=== PATIENT | female | born 1955 | race Caucasian/White ===

== ENCOUNTER 2016-08-24 06:14 | Emergency (ER) | payer MEDICARE, MEDICAID ==
[2016-08-24 06:21] VITALS: BP 120/63
--- NOTE | 2016-08-24 06:33 | ER Document Report ---
ED Medical Screen (RME) - General Information source: Patient TRAVEL OUTSIDE OF THE [place] IN LAST 30 DAYS: No - HPI Patient complains to provider of: Cellulitic Left Foot Onset/Duration: Gradual, Persistent - General Chief Complaint: Wound Recheck Stated Complaint: WOUND RECHECK Notes: Patient is a 61-year-old female presenting to the emergency department for recheck of her cellulitic left foot. Patient was seen here yesterday and given Clindamycin. Patient reports that despite elevating her foot and taking the medication, her foot is still very tender, red, and swollen. Patient states that the infection around her clavicle has improved with the cream she was given. 08/14/2016 patient had bone marrow from her left knee transferred into her clavicle for a fracture injury that was previously attempted to fix with a bone graft. Patient rejected the cadaver bone, so this procedure was performed. (AIDA WOOD) - Related Data Allergies/Adverse Reactions: codeine Allergy (Severe, Verified 08/23/16 13:25) Anaphylaxis Penicillins Allergy (Severe, Verified 08/23/16 13:25) Anaphylaxis NSAIDS (Non-Steroidal Anti-Inflamma Adverse Reaction (Severe, Verified 08/23/16 13:25) GI upset BEE STINGS Allergy (Severe, Uncoded 08/23/16 13:25) Anaphylaxis LIDOCAINE PATCH Allergy (Severe, Uncoded 08/23/16 13:25) Blisters Past Medical History - General Information source: Patient - Social History Lives with: Spouse/Significant other Family history: Reviewed & Not Pertinent Pulmonary Medical History: Reports: Hx Asthma - albuterol 03/08 Renal/ Medical History: Reports: Hx Kidney Stones - R GI Medical History: Reports: Hx Gastroesophageal Reflux Disease Musculoskeltal Medical History: Reports Hx Arthritis - DDD, lumbar fusion screws & pins (2008 & 2012) Past Surgical History: Reports: Hx Orthopedic Surgery - R ROTATOR CUFF, NECK WITH HARDWARE, BONE GRAFT - Immunizations Hx Diphtheria, Pertussis, Tetanus Vaccination: Yes Review of Systems - Review of Systems Constitutional: No symptoms reported EENT: No symptoms reported Cardiovascular: No symptoms reported Respiratory: No symptoms reported Gastrointestinal: No symptoms reported Genitourinary: No symptoms reported Female Genitourinary: No symptoms reported Musculoskeletal: See HPI, Leg swelling Skin: See HPI, Change in color Hematologic/Lymphatic: No symptoms reported Neurological/Psychological: No symptoms reported Physical Exam - Vital signs Interpretation: Normal - General General appearance: Alert - HEENT Head: Normocephalic, Atraumatic Eyes: Normal Pupils: PERRL - Respiratory Respiratory status: No respiratory distress Chest status: Nontender Breath sounds: Normal Chest palpation: Normal - Cardiovascular Rhythm: Regular Heart sounds: Normal auscultation Murmur: No - Abdominal Inspection: Normal Distension: No distension Bowel sounds: Normal Tenderness: Nontender Organomegaly: No organomegaly - Back Back: Normal, Nontender - Extremities General upper extremity: Normal inspection, Nontender, Normal color, Normal ROM , Normal temperature General lower extremity: Tender, Edema, Other - Left lower extremity- non- pitting edema and anterior erythema up to mid calf. Warm to touch.. No: Normal temperature - Neurological Neuro grossly intact: Yes Cognition: Normal [place] Coma Scale Eye Opening: Spontaneous [place] Coma Scale Verbal: Oriented [place]a Coma Scale Motor: Obeys Commands [place] Coma Scale Total: 15 Speech: Normal - Psychological Associated symptoms: Normal affect, Normal mood - Skin Skin Temperature: Warm Skin Moisture: Dry Skin Color: Other - See lower extremity exam. - Vital signs Vitals: Temp Pulse Resp BP Pulse Ox 98.0 F 90 18 120/63 94 08/24/16 06:20 08/24/16 06:20 08/24/16 06:20 08/24/16 06:20 08/24/16 06:20 (JALEN EDWARD) (AIDA WOOD) Course - Re-evaluation Re-evalutation: 08/24/16 06:34 I personally performed the services described in the documentation, reviewed and edited the documentation which was dictated to my scribe in my presence, and it accurately records my words and actions. Patient present presented to the emergency Department for mandatory recheck that I requested I saw her yesterday and evaluation postop wound infection to the left anterior clavicle spoke with Dr. Roach that area is doing well she's received clindamycin for that left lower extremity was negative for DVT but does have a early cellulitis. Give her a shot of Rocephin that she couldn't do clindamycin and recheck her in 1224 hrs. in the emergency department and discussed reasons for ED return sooner (JALEN EDWARD) - Vital Signs Vital signs: Temp Pulse Resp BP Pulse Ox 98.0 F 90 18 120/63 94 08/24/16 06:20 08/24/16 06:20 08/24/16 06:20 08/24/16 06:20 08/24/16 06:20 (JALEN EDWARD) (AIDA WOOD) Doctor's Discharge - Discharge Clinical Impression: Encounter for wound re-check Cellulitis Qualifiers: Site of cellulitis: extremity Site of cellulitis of extremity: lower extremity Laterality: left Qualified Code(s): L03.116 - Cellulitis of left lower limb Additional Instructions: Cellulitis You have an infection of your skin and underlying soft tissues called cellulitis. This is due to bacteria, which can enter through any break in the skin, or even through an irritated hair follicle. Untreated, cellulitis will usually worsen. Antibiotics are required. Usually, warm packs or warm soaks, and elevation of the infected area are recommended. You should start getting better within 24 to 36 hours. Most infections respond quickly to the right medication. Follow-up care is important, however, to check for abscess (boil) formation, unsuspected foreign body, or resistant infection. If you develop fever, chills, or if the area of infection is becoming rapidly more swollen or painful, call the doctor at once. Recheck and reevaluation in the emergency department in 12-25 hours return for increasing worsening or new symptoms Scribe Documentation - Scribe Written by Obey:: Aida Wood 08/24/2016 07:57 acting as scribe for :: Denilson
[2016-08-24] MEDS ORDERED: CEFTRIAXONE INJ 1000 MG VIAL IM ONE (06:41)
[2016-08-24] MEDS ORDERED: CLINDAMYCIN PHOSPHATE INJ 300 MG/2 ML SDV IM ONE (06:42)
== END 2016-08-24 07:01 | disposition home or self-care (01) ==
LOC: ER 06:14
DX: L03.116 Cellulitis of left lower limb (principal); Z98.890 Other specified postprocedural states; Z88.6 Allergy status to analgesic agent; Z88.0 Allergy status to penicillin; Z91.030 Bee allergy status; Z87.442 Personal history of urinary calculi; Z98.1 Arthrodesis status
CPT/HCPCS: 96372; 99282

== ENCOUNTER 2016-08-25 06:00 | Emergency (ER) | payer MEDICARE, MEDICAID ==
[2016-08-25] MEDS ORDERED: CLINDAMYCIN 900 MG/D5W RTU 50 ML IV ONE (07:45)
--- NOTE | 2016-08-25 07:45 | ER Document Report ---
ED Wound - General Mode of Arrival: Ambulatory Information source: Patient TRAVEL OUTSIDE OF THE [place] IN LAST 30 DAYS: No - HPI Patient complains to provider of: Post surgical problem Onset/Duration: Persistent Severity: None Associated Symptoms: None - General Chief Complaint: Wound Recheck Stated Complaint: RECHECK Notes: Patient is a 61 year old female that presents to the emergency department today for a mandatory wound recheck. Patient initially had surgery on August 13, 2016 for a left clavicle fracture. Patient fractured her left clavicle around one year ago and it did not heal properly. Patient had a cadaver bone placed which was rejected so Dr. Roach took bone marrow from her left knee on to attempt to fix the clavicle. Patient's left clavicle wound grew out gram positive cocci. Patient reports no new symptoms. (STUART SHEEHAN) - Related Data Allergies/Adverse Reactions: codeine Allergy (Severe, Verified 08/23/16 13:25) Anaphylaxis Penicillins Allergy (Severe, Verified 08/23/16 13:25) Anaphylaxis NSAIDS (Non-Steroidal Anti-Inflamma Adverse Reaction (Severe, Verified 08/23/16 13:25) GI upset BEE STINGS Allergy (Severe, Uncoded 08/23/16 13:25) Anaphylaxis LIDOCAINE PATCH Allergy (Severe, Uncoded 08/23/16 13:25) Blisters Past Medical History - General Information source: Patient, [facility] Records - Social History Smoking Status: Current Every Day Smoker Cigarette use (# per day): Yes Chew tobacco use (# tins/day): No Frequency of alcohol use: None Drug Abuse: None Lives with: Family Family History: Reviewed & Not Pertinent Patient has suicidal ideation: No Patient has homicidal ideation: No Pulmonary Medical History: Reports: Hx Asthma - albuterol 03/08 Renal/ Medical History: Reports: Hx Kidney Stones - R GI Medical History: Reports: Hx Gastroesophageal Reflux Disease Musculoskeltal Medical History: Reports Hx Arthritis - DDD, lumbar fusion screws & pins (2008 & 2012) Past Surgical History: Reports: Hx Orthopedic Surgery - R ROTATOR CUFF, NECK WITH HARDWARE, BONE GRAFT - Immunizations Hx Diphtheria, Pertussis, Tetanus Vaccination: Yes Hx Pneumococcal Vaccination: 08/24/10 Review of Systems - Review of Systems Constitutional: denies: Fever EENT: No symptoms reported Cardiovascular: No symptoms reported Respiratory: No symptoms reported Gastrointestinal: No symptoms reported Genitourinary: No symptoms reported Female Genitourinary: No symptoms reported Musculoskeletal: No symptoms reported Skin: See HPI, Other - here for wound recheck Hematologic/Lymphatic: No symptoms reported Neurological/Psychological: No symptoms reported -: Yes All other systems reviewed and negative Physical Exam - General General appearance: Appears well In distress: None - HEENT Head: Normocephalic, Atraumatic Eyes: Normal Conjunctiva: Normal - Respiratory Respiratory status: No respiratory distress - Cardiovascular Rhythm: Regular - Abdominal Inspection: Normal Distension: No distension - Extremities General lower extremity: Edema - LLE with compression stocking in place, minimal erythema to anterior cruz, cellulitis has improved - Neurological Neuro grossly intact: Yes Cognition: Normal Orientation: AAOx4 - Psychological Associated symptoms: Normal affect, Normal mood - Vital signs Vitals: Temp Pulse Resp BP Pulse Ox 97.8 F 92 18 120/55 L 95 08/25/16 06:04 08/25/16 06:04 08/25/16 06:04 08/25/16 06:04 08/25/16 06:04 (STUART SHEEHAN) (JALEN EDWARD) - Skin Notes: Stapled incision over left clavicle with minimal surrounding erythema. (STUART SHEEHAN) Discharge - Discharge Clinical Impression: Local infection of wound, Postoperative wound infection Condition: Stable Disposition: HOME, SELF-CARE Additional Instructions: Cellulitis You have an infection of your skin and underlying soft tissues called cellulitis. This is due to bacteria, which can enter through any break in the skin, or even through an irritated hair follicle. Untreated, cellulitis will usually worsen. Antibiotics are required. Usually, warm packs or warm soaks, and elevation of the infected area are recommended. You should start getting better within 24 to 36 hours. Most infections respond quickly to the right medication. Follow-up care is important, however, to check for abscess (boil) formation, unsuspected foreign body, or resistant infection. If you develop fever, chills, or if the area of infection is becoming rapidly more swollen or painful, call the doctor at once. At Dr. Roach as scheduled on Thursday return for increasing worsening new symptoms make sure he refill your prescription medication Scribe Documentation - Scribe acting as scribe for :: Denilson Written by Scribe:: Obey Carter, 0523 08/25/2016
[2016-08-25] MEDS ORDERED: CLINDAMYCIN PHOSPHATE INJ 300 MG/2 ML SDV IM ONE (08:20)
[2016-08-25 08:39] VITALS: BP 115/50
== END 2016-08-25 08:40 | disposition home or self-care (01) ==
LOC: ER 06:00
DX: T81.4XXA Infection following a procedure, initial encounter (principal); F17.210 Nicotine dependence, cigarettes, uncomplicated; Z88.6 Allergy status to analgesic agent; Z88.0 Allergy status to penicillin; Z91.030 Bee allergy status; Z87.442 Personal history of urinary calculi; Z98.1 Arthrodesis status
CPT/HCPCS: 96372; 99282

== ENCOUNTER 2017-09-30 07:38 | Day surgery (SDC) | payer MEDICARE, MEDICAID ==
[2017-09-21 10:50] LABS: ABSOLUTE BASOPHILS # (AUTO) 0.1 10^3/uL (0.0-0.2); ABSOLUTE EOSINOPHILS # (AUTO) 0.1 10^3/uL (0.0-0.6); ABSOLUTE LYMPHOCYTES (AUTO) 3.7 10^3/uL (0.5-4.7); ABSOLUTE MONOCYTES (AUTO) 0.8 10^3/uL (0.1-1.4); ABSOLUTE NEUT (AUTO) 3.9 10^3/uL (1.7-8.2); BASOPHILS % (AUTO) 1.1 % (0-2); HEMATOCRIT 43.3 % (36.0-47.0); HEMOGLOBIN 13.9 g/dL (12.0-15.5); MEAN CORPUSCULAR HEMOGLOBIN 22.5 pg (27.0-33.4); MEAN CORPUSCULAR HGB CONC 32.1 g/dL (32.0-36.0); MEAN CORPUSCULAR VOLUME 70 fl (80-97); MONOCYTES % (AUTO) 9.4 % (3-13); PLATELET COUNT 273 10^3/uL (150-450); RED BLOOD COUNT 6.17 10^6/uL (3.72-5.28); RED CELL DISTRIBUTION WIDTH 19.2 % (11.5-14.0); SEGMENTED NEUTROPHILS % (AUTO) 45.5 % (42-78); TOTAL CELLS COUNTED % (AUTO) 100 %; WHITE BLOOD COUNT 8.6 10^3/uL (4.0-10.5)
[2017-09-21 10:53] LABS: APPEARANCE,URINE SLIGHTLY-CLOUDY; BILIRUBIN,URINE NEGATIVE (NEGATIVE); COLOR,URINE YELLOW; GLUCOSE, URINE NEGATIVE (NEGATIVE); KETONES,URINE NEGATIVE (NEGATIVE); LEUKOCYTE ESTERASE,URINE NEGATIVE (NEGATIVE); NITRITE,URINE NEGATIVE (NEGATIVE); PROTEIN,URINE NEGATIVE (NEGATIVE); URINE SPECIFIC GRAVITY 1.018; UROBILINOGEN,URINE NEGATIVE mg/dL (<2.0)
[2017-09-21 11:10] LABS: ANION GAP 9 (5-19); BLOOD UREA NITROGEN 9 mg/dL (7-20); CALCIUM 9.4 mg/dL (8.4-10.2); CARBON DIOXIDE 30 mmol/L (22-30); CHLORIDE 103 mmol/L (98-107); GLUCOSE 102 mg/dL (75-110); SODIUM 142.1 mmol/L (137-145)
--- NOTE | 2017-09-21 12:38 | RADIOLOGY REPORT (SQ) ---
EXAM DESCRIPTION: CHEST PA/LATERAL COMPLETED DATE/TIME: 09/21/2017 11:13 am REASON FOR STUDY: PRE OP COMPARISON: 08/23/2016 EXAM PARAMETERS: NUMBER OF VIEWS: two views TECHNIQUE: Digital Frontal and Lateral radiographic views of the chest acquired. RADIATION DOSE: NA LIMITATIONS: none FINDINGS: LUNGS AND PLEURA: No opacities, masses or pneumothorax. No pleural effusion. MEDIASTINUM AND HILAR STRUCTURES: Calcified mediastinal nodes. HEART AND VASCULAR STRUCTURES: Heart normal size. No evidence for failure. BONES: No acute findings. HARDWARE: None in the chest. OTHER: No other significant finding. IMPRESSION: No acute findings in the chest. TECHNICAL DOCUMENTATION: JOB ID: [id number] [employer]- All Rights Reserved
--- NOTE | 2017-09-21 12:59 | EKG REPORT ---
SEVERITY:- NORMAL ECG - SINUS RHYTHM : Confirmed by: Jude Tapia MD 21-Sep-2017 12:58:32
[~2017-09-30 07:38] MED LIST: CLINDAMYCIN 600 MG/D5W RTU 600 MG/50 ML RTUPB IV PRN; LACTATED RINGERS 1000 ML IV PRN; LIDOCAINE 0.5% INJ-PF (5 MG/ML) 50 ML SDV SUBCUT PRN
[2017-09-30] MEDS ORDERED: ALBUTEROL SULFATE 0.083% NEB 2.5 MG/3 ML AMPUL NEB ONE (07:50)
[2017-09-30] MEDS ORDERED: FENTANYL CITRATE INJ/PF 100 MCG/2 ML AMPUL ONE ×2 (08:05)
[2017-09-30] MEDS ORDERED: BUPIVACAINE HCL 0.5 % INJ/PF 30 ML SDV ONE (08:05)
[2017-09-30] MEDS ORDERED: MIDAZOLAM 2 MG/2 ML INJ ONE (08:06)
[2017-09-30] MEDS ORDERED: PROPOFOL INJ 200 MG/20 ML VIAL IV ONE (08:06)
[2017-09-30] MEDS ORDERED: ACETAMINOPHEN 0 ML IV ONE (08:06)
[2017-09-30] MEDS ORDERED: METOCLOPRAMIDE HCL INJ/PF 10 MG/2 ML SDV ONE (08:07)
[2017-09-30] MEDS ORDERED: FAMOTIDINE INJ/PF 20 MG/2 ML SDV IV ONE (08:15)
[2017-09-30] MEDS ORDERED: RINGERS SOLUTION,LACTATED 500 ML IV ONE (08:15)
[2017-09-30] MEDS ORDERED: BUPIVACAINE HCL 0.5%-EPI 1:200000 INJ/PF 30 ML VIAL ONE (08:57)
--- NOTE | 2017-09-30 09:32 | Operative Report ---
Operative Report DATE OF SURGERY: 09/30/17 PREOPERATIVE DIAGNOSIS: Retained hardware left clavicle OPERATION: Hardware removal SURGEON: SHYANNE ROCKWELL 1ST AUTOMOTIVE [employer]LL[employer] REPAIR INSTRUCTOR: ALLI THOMPSON ANESTHESIA: GA TISSUE REMOVED OR ALTERED: Implants to CSS ESTIMATED BLOOD LOSS: 25 PROCEDURE: With the patient in a beachchair position on the operating table the left upper extremity forequarter prepped and draped in sterile fashion. A 15 cm longitudinal incision was made over the superior border of the clavicle. Sharp dissection was used to bring the incision down to the plate. The plate is clear to soft tissue using a periosteal elevator. 7 screws were removed. The plate is elevated lifted out from underneath the acromion process. The wound is then irrigated. Hemostasis obtained with electrocautery. Wound is closed in layers using interrupted Vicryl followed by panchito. A sterile compressive dressings applied and the patient returned to PACU in satisfactory condition.
[2017-09-30] MEDS ORDERED: PROMETHAZINE HCL INJ 25 MG/1 ML VIAL IV PRN (09:34)
[2017-09-30] MEDS ORDERED: DIPHENHYDRAMINE HCL 50 MG/ML VIAL IV PRN (09:34)
[2017-09-30] MEDS ORDERED: FENTANYL CITRATE INJ/PF 100 MCG/2 ML AMPUL IV PRN ×3 (09:34)
[2017-09-30] MEDS ORDERED: OXYCODONE HCL IR 5 MG TABLET PO PRN (09:57)
[2017-09-30] MEDS ORDERED: ONDANSETRON 4 MG TAB.RAPDIS SL PRN (09:57)
[2017-09-30] MEDS ORDERED: LIDOCAINE 2% INJ-PF (20 MG/ML) 2 ML AMPUL ONE (10:58)
[2017-09-30] MEDS ORDERED: DEXAMETHASONE SOD PHOSPHATE INJ 4 MG/1 ML VIAL ONE (10:58)
[2017-09-30] MEDS ORDERED: PHENYLEPHRINE HCL INJ/PF 10 MG/1 ML SDV ONE (10:58)
[2017-09-30] MEDS ORDERED: GLYCOPYRROLATE INJ 0.4 MG/2 ML VIAL ONE (10:58)
[2017-09-30] MEDS ORDERED: ONDANSETRON HCL INJ/PF 4 MG/2 ML SDV ONE (10:58)
[2017-09-30] MEDS ORDERED: SUCCINYLCHOLINE CHLORIDE INJ 200 MG/10 ML VIAL ONE (10:58)
[2017-09-30 12:09] VITALS: BP 99/61
== END 2017-09-30 11:40 | disposition home or self-care (01) ==
LOC: OROUT 07:38
PROVIDERS: ATTEND Orthopaedic Surgery
PROC: 0PPB04Z Removal of Internal Fixation Device from Left Clavicle, Open Approach (ICD-10-PCS; principal; 2017-09-30 08:45)
DX: S42.002G Fracture of unspecified part of left clavicle, subsequent encounter for fracture with delayed healing (principal); S42.002S Fracture of unspecified part of left clavicle, sequela; X58.XXXD Exposure to other specified factors, subsequent encounter; Z79.01 Long term (current) use of anticoagulants; I25.10 Atherosclerotic heart disease of native coronary artery without angina pectoris; J45.909 Unspecified asthma, uncomplicated; F17.210 Nicotine dependence, cigarettes, uncomplicated; G45.9 Transient cerebral ischemic attack, unspecified; R01.1 Cardiac murmur, unspecified; Z86.73 Personal history of transient ischemic attack (TIA), and cerebral infarction without residual deficits; Z88.0 Allergy status to penicillin; Z88.5 Allergy status to narcotic agent
CPT/HCPCS: 93005; 36415; 85025; 80048; 81001; 71046; 93010; 20680; J2250; J3490 ×3; J1100; J3010; J2765; J2370; J0330; J2405; J2704; A9270; 450; J0131